=== PATIENT | female | born 1980 | race Caucasian/White ===

== ENCOUNTER 2016-12-18 15:20 | Emergency (ER) | payer MEDICAID ==
--- NOTE | 2016-12-18 18:15 | Emergency Department Record ---
History of Present Illness - General Chief Complaint: Cough Stated Complaint: COUGH Time Seen by Provider: 12/18/16 18:12 Source: Patient Mode of Arrival: Ambulatory Limitations: No limitations - History of Present Illness Initial Comments: 36 yo female presents to ED with a 9-day history of intermittent fevers and cough symptoms. Patient denies previous lung problems or asthma. Patient does report that her daughter has been ill with similar symptoms. MD Complaint: Cough, Fever Onset/Timin -: Days(s) Severity: Mild Severity scale (1-10): 4 Consistency: Constant Improves With: Nothing Worsens With: Nothing - Related Data Home Medications Medication Instructions Recorded Confirmed Last Taken Venlafaxine HCl [Effexor Xr] 150 mg PO BID 09/11/14 12/18/16 12/18/16 Pnv Cmb#21/Iron/Folic Acid 1 each PO DAILY 06/19/15 12/18/16 12/18/16 [ Complete Caplet] Pregabalin [Lyrica] 300 mg PO BID 10/09/16 12/18/16 12/18/16 Previous Rx's Medication Instructions Recorded Amoxicillin/Potassium Clav 1 tab PO BID #20 tab 12/18/16 [Augmentin 875-125 Tablet] Benzonatate [Tessalon] 2 cap PO Q8H PRN #30 cap 12/18/16 Prednisone [Prednisone 20Mg] 20 mg PO TID #15 tab 12/18/16 Allergies Allergy/AdvReac Type Severity Reaction Status Date / Time topiramate [From Topamax] Allergy HIVES Verified 12/18/16 17:31 Travel Screening - Travel/Exposure Within Last 30 Days Have you traveled within the last 30 days?: No Review of Systems Constitutional: Reports: Fever. Denies: Chills, Malaise, Night sweats Eyes: Denies: Eye discharge, Eye pain ENT: Reports: Congestion. Denies: Ear pain, Epistaxis Respiratory: Reports: Cough, Dyspnea, Wheezes Cardiovascular: Denies: Chest pain, Dyspnea on exertion, Palpitations Endocrine: Denies: Fatigue, Heat or cold intolerance Gastrointestinal: Denies: Abdominal pain, Nausea, Vomiting Genitourinary: Denies: Dysuria, Frequency, Hematuria Musculoskeletal: Denies: Arthralgia, Back pain, Gout, Joint swelling Skin: Denies: Bruising, Change in color, Pruritus, Rash Neurological: Denies: Abnormal gait, Confusion, Headache, Seizure Psychiatric: Denies: Anxiety Hematological/Lymphatic: Denies: Anemia, Blood Clots Past Medical History - SOCIAL HISTORY Smoking Status: Former smoker Alcohol Use: None Drug Use: None - RESPIRATORY Hx Respiratory Disorders: No - CARDIOVASCULAR Hx Cardio Disorders: No - NEURO Hx Neuro Disorders: Yes Hx Headaches: Yes - GI Hx GI Disorders: No - Hx Genitourinary Disorders: Yes Hx Kidney Stones: Yes - ENDOCRINE Hx Endocrine Disorders: No - MUSCULOSKELETAL Hx Musculoskeletal Disorders: No - PSYCH Hx Psych Problems: Yes Hx Anxiety: Yes Hx Depression: Yes - HEMATOLOGY/ONCOLOGY Hx Hematology/Oncology Disorders: No Family Medical History Any Significant Family History?: No Physical Exam - General General Appearance: Alert, Oriented x3, Cooperative, No acute distress Limitations: No limitations - Head Head exam: Atraumatic, Normocephalic, Normal inspection Head exam detail: negative: Abrasion, Contusion, Baird's sign, General tenderness, Hematoma, Laceration - Eye Eye exam: Normal appearance. negative: Conjunctival injection, Periorbital swelling, Periorbital tenderness, Scleral icterus - ENT Ear exam: negative: Auricular hematoma, Auricular trauma Nasal Exam: negative: Active bleeding, Discharge, Dried blood, Foreign body Mouth exam: negative: Drooling, Laceration, Muffled voice, Tongue elevation - Neck Neck exam: Normal inspection. negative: Meningismus, Tenderness - Respiratory Respiratory exam: Prolonged expiratory, Wheezes (mild wheezes present bilaterally). negative: Respiratory distress, Rhonchi, Stridor - Cardiovascular Cardiovascular Exam: Regular rate, Normal rhythm, Normal heart sounds - GI/Abdominal GI/Abdominal exam: Soft. negative: Rebound, Rigid, Tenderness - Rectal Rectal exam: Deferred - exam: Deferred - Extremities Extremities exam: Normal inspection. negative: Calf tenderness, Pedal edema, Tenderness - Back Back exam: Reports: Normal inspection. Denies: CVA tenderness (R), CVA tenderness (L) - Neurological Neurological exam: Alert, Normal gait, Oriented X3 - Psychiatric Psychiatric exam: Normal affect, Normal mood - Skin Skin exam: Normal color. negative: Abrasion Type of lesion: negative: abrasion Course Vital Signs 12/18/16 17:23 Temperature 97.7 F Pulse Rate [ 68 Pulse Ox Probe] Respiratory 18 Rate Blood Pressure 139/97 [Left Arm] Pulse Ox 97 - Reevaluation(s) Reevaluation #1: 12/18/16 18:31 Patient is well appearing on examination with very mild wheezing bilaterally. Patient also reports that she has an albuterol inhaler at home. Patient appears stable for discharge on Augmentin, Prednisone, and Tessalon for her cough symptoms with symptoms likely secondary to bronchitis. Patient agrees with the plan as discussed. Disposition Disposition: Discharge Clinical Impression: URI (upper respiratory infection) Qualifiers: URI type: unspecified viral URI Qualified Code(s): J06.9 - Acute upper respiratory infection, unspecified Disposition: Home, Self-Care Condition: (2) Stable Instructions: Acute Bronchitis (ED) Additional Instructions: Return to ED if your symptoms worsen or if you have any concern. Augmentin, Tessalon, and prednisone as directed. Follow-up with your family doctor in 3-5 days as directed. Prescriptions: Amoxicillin/Potassium Clav [Augmentin 875-125 Tablet] 1 tab PO BID #20 tab Prednisone [Prednisone 20Mg] 20 mg PO TID #15 tab Benzonatate [Tessalon] 2 cap PO Q8H PRN #30 cap PRN Reason: Cough Forms: Patient Portal Access Time of Disposition: 18:15
[2016-12-18] MEDS ORDERED: BENZONATATE 100 MG CAPSULE PO ONE (18:44)
[2016-12-18] MEDS ORDERED: AMOXICILLIN/POTASSIUM CLAV 875MG/125MG TABLET PO ONE (18:44)
[2016-12-18] MEDS ORDERED: PREDNISONE 20 MG TAB PO ONE (18:44)
== END 2016-12-18 18:37 | disposition home or self-care (01) ==
LOC: ER 15:20
DX: J06.9 Acute upper respiratory infection, unspecified (principal); R06.2 Wheezing
CPT/HCPCS: 99282; J7512

== ENCOUNTER 2017-08-13 17:21 | Emergency (ER) | payer MEDICAID ==
[2017-08-13] MEDS ORDERED: KETOROLAC 30 MG/ML VIAL IM ONE (18:29)
--- NOTE | 2017-08-13 18:34 | Emergency Department Record ---
History of Present Illness - General Chief complaint: Pain Stated complaint: PAIN LOWER BACK DOWN RT LEG Time Seen by Provider: 08/13/17 18:21 Source: Patient Mode of Arrival: Ambulatory Limitations: No limitations - History of Present Illness Initial comments: The patient is here due to a 2 day hx of lower back pain. She states she was pushing large rocks in the yard 2 days ago and then developed R sided back pain. The pain is sharp and stabbing and intermittently radiates down the R leg with certain positions. She denies any trauma, fall or injury. The pain is MUCH worse with any movement or twisting. She denies any leg weakness, numbness, or any bowel or bladder issues. The patient does have a hx of chronic low back pain and does already take multiple medicines for it. There is no reported abdominal pain, fever, chills, nausea, or vomiting. MD Complaint: Other Onset/Timin -: Days(s) Location: Right, Lower Leg, Other Severity scale (1-10): 9 Quality: Dull, Sharp Consistency: Constant Improves with: Nothing Worsens with: Weight bearing Associated Symptoms: Denies other symptoms - Related Data Previous Rx's Medication Instructions Recorded Cyclobenzaprine HCl [Flexeril] 10 mg PO TID PRN #20 tablet 08/13/17 Allergies Allergy/AdvReac Type Severity Reaction Status Date / Time topiramate [From Topamax] Allergy HIVES Verified 12/18/16 17:31 Travel Screening - Travel/Exposure Within Last 30 Days Have you traveled within the last 30 days?: No Review of Systems Constitutional: Denies: Chills, Fever Eyes: Denies: Eye discharge ENT: Denies: Congestion Respiratory: Denies: Cough, Dyspnea Past Medical History - SOCIAL HISTORY Smoking Status: Former smoker - RESPIRATORY Hx Respiratory Disorders: No - CARDIOVASCULAR Hx Cardio Disorders: No - NEURO Hx Neuro Disorders: Yes Hx Headaches: Yes - GI Hx GI Disorders: No - Hx Genitourinary Disorders: Yes Hx Kidney Stones: Yes - ENDOCRINE Hx Endocrine Disorders: No - MUSCULOSKELETAL Hx Musculoskeletal Disorders: No - PSYCH Hx Psych Problems: Yes Hx Anxiety: Yes Hx Depression: Yes - HEMATOLOGY/ONCOLOGY Hx Hematology/Oncology Disorders: No Family Medical History Any Significant Family History?: No Physical Exam - General General Appearance: Alert, Oriented x3, Cooperative, No acute distress - Head Head exam: Atraumatic, Normocephalic, Normal inspection - Eye Eye exam: Normal appearance, PERRL - Neck Neck exam: Normal inspection, Full ROM. negative: Tenderness - Respiratory Respiratory exam: Normal lung sounds bilaterally. negative: Respiratory distress - Cardiovascular Cardiovascular Exam: Regular rate, Normal rhythm, Normal heart sounds - GI/Abdominal GI/Abdominal exam: Soft, Normal bowel sounds. negative: Guarding, Rebound, Tenderness - Extremities Extremities exam: Normal inspection, Full ROM, Normal capillary refill. negative: Tenderness Image of Full Body: 1 - Location of the patient's pain and tenderness. - Back Back exam: Reports: Normal inspection, Paraspinal tenderness, Other (Neg SLR bilaterally.). Denies: Full ROM (decreased due to pain.), Rash noted, Vertebral tenderness - Neurological Neurological exam: Alert, Normal gait, Oriented X3, Reflexes normal (The patella and achilles reflexes are 2+ and equal bilaterally.). negative: Abnormal gait, Altered, Motor sensory deficit Course Vital Signs 08/13/17 18:15 Temperature 98.0 F Pulse Rate 104 H Respiratory 18 Rate Blood Pressure 110/72 Pulse Ox 98 - Reevaluation(s) Reevaluation #1: The patient is doing better at this time. The cath. UA was normal with 0-2 RBC' s and neg for WBC's and bacteria. I did explain to the patient that it appears she has a strained muscle in her back with some spasm. She is to rest at home and see her PCP if not better later this week. 08/13/17 19:33 Disposition Disposition: Discharge Clinical Impression: Muscle strain Disposition: Home, Self-Care Condition: (1) Good Instructions: Muscle Spasm (ED) Additional Instructions: Please take your home pain medicines and add the Flexeril when not working or driving. Please see your PCP if not better in 2-3 days. Return to the ER for any increased pain, fever, or any leg weakness, numbness, or any bowel or bladder incontinence or difficulty going the bathroom. Prescriptions: Cyclobenzaprine HCl [Flexeril] 10 mg PO TID PRN #20 tablet PRN Reason: Pain Forms: Patient Portal Access Time of Disposition: 19:36 Quality - Quality Measures Quality Measures: N/A - Blood Pressure Screening View Details: Yes Does Patient Have Any of the Following: No Blood Pressure Classification: Normal BP Reading Systolic Measurement: 110 Diastolic Measurement: 72 Screening for High Blood Pressure: < Normal BP, F/U Not Required > [G8783]
[2017-08-13 18:44] LABS: URINE APPEARANCE SL CLOUDY; URINE BILIRUBIN NEGATIVE (NEGATIVE); URINE BLOOD LARGE (NEGATIVE); URINE COLOR YELLOW; URINE GLUCOSE (UA) NEGATIVE (NEGATIVE); URINE KETONE TRACE (NEGATIVE); URINE LEUKOCYTE ESTERASE TRACE (NEGATIVE); URINE NITRITE NEGATIVE (NEGATIVE); URINE PROTEIN TRACE (NEGATIVE); URINE UROBILINOGEN 0.2 E.U./dL (0.20 - 1.00)
[2017-08-13 18:50] LABS: HCG,QUALITATIVE URINE NEGATIVE (NEGATIVE); URINE BACTERIA 1+; URINE EPITHELIAL CELLS 36 - 50 (FEW)
[2017-08-13 19:27] LABS: URINE APPEARANCE CLEAR; URINE BILIRUBIN NEGATIVE (NEGATIVE); URINE BLOOD SMALL (NEGATIVE); URINE COLOR YELLOW; URINE GLUCOSE (UA) NEGATIVE (NEGATIVE); URINE KETONE TRACE (NEGATIVE); URINE LEUKOCYTE ESTERASE NEGATIVE (NEGATIVE); URINE NITRITE NEGATIVE (NEGATIVE); URINE PROTEIN NEGATIVE (NEGATIVE); URINE UROBILINOGEN 0.2 E.U./dL (0.20 - 1.00)
[2017-08-13] MEDS ORDERED: HYDROCODONE/APAP 5/325MG TABLET PO ONE (19:36)
== END 2017-08-13 19:47 | disposition home or self-care (01) ==
LOC: ER 17:21
DX: S39.012A Strain of muscle, fascia and tendon of lower back, initial encounter (principal); X50.9XXA Other and unspecified overexertion or strenuous movements or postures, initial encounter; Y93.H9 Activity, other involving exterior property and land maintenance, building and construction; Y92.007 Garden or yard of unspecified non-institutional (private) residence as the place of occurrence of the external cause
CPT/HCPCS: 99283; 96372; 99284; 81001; 81003; 81025; J1885

== ENCOUNTER 2017-10-05 09:12 | Emergency (ER) | payer MEDICAID ==
--- NOTE | 2017-10-05 09:44 | Emergency Department Record ---
History of Present Illness - General Chief complaint: Extremity Problem Stated complaint: L FOOT PAIN Time Seen by Provider: 10/05/17 09:43 Source: Patient Mode of Arrival: Ambulatory Limitations: No limitations - History of Present Illness Initial comments: The patient is here due to L foot pain for 3 days. The pain is much worse today and is located near the heel over the plantar surface. She denies any trauma or injury or any hx of similar issues. MD Complaint: Extremity pain Onset/Timin -: Days(s) Location: Left, Foot History of Same: No Radiation: None Severity scale (1-10): 7 Quality: Dull, Other Consistency: Intermittent Improves with: Immobilization Worsens with: Walking, Weight bearing Associated Symptoms: Denies other symptoms - Related Data Previous Rx's Medication Instructions Recorded Cephalexin [Keflex] 500 mg PO QID #28 cap 10/05/17 Naproxen [Naprosyn] 250 mg PO BID #14 tablet 10/05/17 Allergies Allergy/AdvReac Type Severity Reaction Status Date / Time topiramate [From Topamax] Allergy HIVES Verified 10/05/17 09:31 Travel Screening - Travel/Exposure Within Last 30 Days Have you traveled within the last 30 days?: No - Travel/Exposure Within Last Year Have you traveled outside the [place] in the last year?: No - Additonal Travel Details Have you been exposed to anyone with a communicable illness?: No - Travel Symptoms Symptom Screening: None Review of Systems Constitutional: Denies: Chills, Fever Eyes: Denies: Eye discharge ENT: Denies: Congestion Respiratory: Denies: Cough, Dyspnea Past Medical History - SOCIAL HISTORY Smoking Status: Former smoker Alcohol Use: Occasional Drug Use: None - RESPIRATORY Hx Respiratory Disorders: No - CARDIOVASCULAR Hx Cardio Disorders: No - NEURO Hx Neuro Disorders: Yes Hx Headaches: Yes - GI Hx GI Disorders: No - Hx Genitourinary Disorders: Yes Hx Kidney Stones: Yes - ENDOCRINE Hx Endocrine Disorders: No - MUSCULOSKELETAL Hx Musculoskeletal Disorders: No - PSYCH Hx Psych Problems: Yes Hx Anxiety: Yes Hx Depression: Yes - HEMATOLOGY/ONCOLOGY Hx Hematology/Oncology Disorders: No Family Medical History Any Significant Family History?: No Physical Exam - General General Appearance: Alert, Oriented x3, Cooperative, No acute distress - Head Head exam: Atraumatic, Normocephalic, Normal inspection - Eye Eye exam: Normal appearance - Extremities Extremities exam: Full ROM, Normal capillary refill, Tenderness (There is tenderness to palpation over the plantar surface at the site of the pain. There is no swelling, brusing, or puncture wounds present. There possibly is very slight erythema present.). negative: Normal inspection (There may very very trace erythema over the pain area.), Calf tenderness, Joint swelling, Pedal edema Image of Feet: 1 - Area of pain and tenderness. Course Vital Signs 10/05/17 09:33 Temperature 97.8 F Pulse Rate 107 H Respiratory 20 Rate Blood Pressure 122/82 Pulse Ox 97 - Reevaluation(s) Reevaluation #1: I did explain to the patient the xray was normal and the need for F/U next week. We will treat the patient with Keflex and naprosyn and have her stay off the foot for 3 days. 10/05/17 10:52 Medical Decision Making - Data Complexity MDM Data: X-Ray Ordered and/or Reviewed - Radiology Data Radiology results: Report reviewed (L foot: Neg.) Disposition Disposition: Discharge Clinical Impression: Foot pain, left Disposition: Home, Self-Care Condition: (2) Stable Instructions: Arthralgia (ED) Additional Instructions: Please use the Post op shoe for 5 days and use your crutches for 3 days and be non weight bearing on the L foot. Please ice and elevate the foot for the next 3 days. Take the Keflex and Naprosyn as directed. Please see your PCP next week for recheck and return to the ER if worse. Prescriptions: Cephalexin [Keflex] 500 mg PO QID #28 cap Naproxen [Naprosyn] 250 mg PO BID #14 tablet Forms: Patient Portal Access Time of Disposition: 10:54 Quality - Quality Measures Quality Measures: N/A - Blood Pressure Screening View Details: Yes Does Patient Have Any of the Following: No Blood Pressure Classification: Pre-Hypertensive BP Reading Systolic Measurement: 122 Diastolic Measurement: 82 Screening for High Blood Pressure: < Pre-Hypertensive BP, F/U Documented > [ G8950] Pre-Hypertensive Follow-up Interventions: Referral to alternative/primary care provider.
[2017-10-05] MEDS ORDERED: IBUPROFEN 600 MG TABLET PO ONE (10:11)
[2017-10-05] MEDS ORDERED: CEPHALEXIN 500 MG CAPSULE PO STA (10:23)
--- NOTE | 2017-10-06 07:35 | RADIOLOGY REPORT ---
EXAM: LEFT FOOT COMPLETE HISTORY: LEFT FOOT PAIN FOR TWO DAYS. THE PAIN IS MEDIAL AND MOST PRONOUNCED WITH WEIGHT BEARING. NO KNOWN INJURY. TECHNIQUE: Three views of the left foot were obtained. Comparison: None. FINDINGS: There is normal bone mineralization. No acute fracture, dislocation , or destructive bone lesion is seen. The articular relations are maintained. No periarticular erosion. No focal soft tissue abnormality. IMPRESSION: NO EVIDENCE OF ACUTE BONE NOR JOINT ABNORMALITY. JOB NUMBER: [id number] MTDD
== END 2017-10-05 11:12 | disposition home or self-care (01) ==
LOC: ER 09:12
DX: M79.672 Pain in left foot (principal)
CPT/HCPCS: 99283

== ENCOUNTER 2018-01-06 18:04 | Emergency (ER) | payer MEDICAID ==
[2018-01-06] MEDS ORDERED: KETOROLAC 30 MG/ML VIAL IM ONE (18:32)
--- NOTE | 2018-01-06 18:36 | Emergency Department Record ---
History of Present Illness - General Chief complaint: Lower Extremity Pain Stated complaint: PAIN ON LEFT FOOT Time Seen by Provider: 01/06/18 18:21 Source: Patient Mode of Arrival: Ambulatory Limitations: No limitations - History of Present Illness Initial comments: The patient is here due to chronic L foot pain. She has had the pain for at least 3 months. The patient was here in the ER in Sep of last year and had a neg L foot xray. The pain has been present off and on since. She has seen her PCP 2-3 times for the same thing and now has finally been referred to podiatry. Now the pain seems to be worsening and she would like something else for the pain. MD Complaint: Extremity pain Onset/Timin -: Month(s) Location: Left, Foot History of Same: Yes Severity scale (1-10): 7 Quality: Aching, Burning Improves with: Nothing Worsens with: Nothing Associated Symptoms: Denies other symptoms - Related Data Previous Rx's Medication Instructions Recorded Naproxen [Naprosyn] 500 mg PO BID #14 tablet. 01/06/18 Allergies Allergy/AdvReac Type Severity Reaction Status Date / Time topiramate [From Topamax] Allergy HIVES Verified 01/06/18 18:14 Travel Screening - Travel/Exposure Within Last 30 Days Have you traveled within the last 30 days?: No - Travel/Exposure Within Last Year Have you traveled outside the [place] in the last year?: No - Additonal Travel Details Have you been exposed to anyone with a communicable illness?: No - Travel Symptoms Symptom Screening: None Review of Systems Constitutional: Denies: Chills, Fever Past Medical History - SOCIAL HISTORY Smoking Status: Former smoker Alcohol Use: None Drug Use: None - RESPIRATORY Hx Respiratory Disorders: No - CARDIOVASCULAR Hx Cardio Disorders: No - NEURO Hx Neuro Disorders: Yes Hx Headaches: Yes - GI Hx GI Disorders: No - Hx Genitourinary Disorders: Yes Hx Kidney Stones: Yes - ENDOCRINE Hx Endocrine Disorders: No - MUSCULOSKELETAL Hx Musculoskeletal Disorders: No - PSYCH Hx Psych Problems: Yes Hx Anxiety: Yes Hx Depression: Yes - HEMATOLOGY/ONCOLOGY Hx Hematology/Oncology Disorders: No Family Medical History Any Significant Family History?: Yes Physical Exam - General General Appearance: Alert, Cooperative, No acute distress - Head Head exam: Atraumatic, Normocephalic - Eye Eye exam: Normal appearance, PERRL - Extremities Extremities exam: Normal inspection (There is no swelling, bruising or erythema. ), Full ROM, Normal capillary refill, Tenderness (There is very reproducible tenderness to palpation over the plantar surface just anterior to the calcaneus. ), Other (The L foot is NVI.). negative: Joint swelling Image of Feet: 1 - Area of pain and tenderness. There is no swelling, erythema, or edema appreciated. Course Vital Signs 01/06/18 18:08 Temperature 98.7 F Pulse Rate 92 H Respiratory 16 Rate Blood Pressure 135/86 Pulse Ox 100 Medical Decision Making - Data Complexity MDM Data: X-Ray Ordered and/or Reviewed - Radiology Data Radiology results: Report reviewed (L foot: Neg.) Disposition Disposition: Discharge Clinical Impression: Foot pain, left Disposition: Home, Self-Care Condition: (2) Stable Instructions: Plantar Fasciitis (ED) Additional Instructions: Please ice the L foot painful area when possible. Wear your walking boot for the next week. Take the Naprosyn as directed. Please see the Clinical Research Scientist ANDI. Prescriptions: Naproxen [Naprosyn] 500 mg PO BID #14 tablet.dr Forms: Patient Portal Access Time of Disposition: 18:41 Quality - Quality Measures Quality Measures: N/A - Blood Pressure Screening View Details: Yes Does Patient Have Any of the Following: No Blood Pressure Classification: Pre-Hypertensive BP Reading Systolic Measurement: 115 Diastolic Measurement: 88 Screening for High Blood Pressure: < Pre-Hypertensive BP, F/U Documented > [ G8950] Pre-Hypertensive Follow-up Interventions: Referral to alternative/primary care provider.
[2018-01-06] MEDS ORDERED: HYDROCODONE/APAP 5/325MG TABLET PO ONE (18:37)
--- NOTE | 2018-01-07 22:47 | RADIOLOGY REPORT ---
EXAM: FOOT, LEFT 3 VIEWS HISTORY: INJURY. TECHNIQUE: Three views of the left foot were performed. FINDINGS: No evidence of fracture or dislocation. No radiopaque loose body. No gas collection. IMPRESSION: NEGATIVE LEFT FOOT EXAMINATION. JOB NUMBER: [id number] MTDD
== END 2018-01-06 19:56 | disposition home or self-care (01) ==
LOC: ER 18:04
DX: M79.672 Pain in left foot (principal); Z87.891 Personal history of nicotine dependence
CPT/HCPCS: 99283 ×2; 96372; 73630; J1885

== ENCOUNTER 2018-01-23 14:52 | Emergency (ER) | payer MEDICAID ==
[2018-01-23] MEDS ORDERED: ACETAMINOPHEN 500 MG TABLET PO ONE (15:13)
[2018-01-23] MEDS ORDERED: 0.9 % SODIUM CHLORIDE 1,000 ML BAG IV ONE ×2 (15:13→17:05)
[2018-01-23 15:20] LABS: INFLUENZA A POSITIVE (NEGATIVE); INFLUENZA B NEGATIVE (NEGATIVE)
[2018-01-23] MEDS ORDERED: OSTELTAMIVIR 75 MG CAP PO ONE (16:03)
--- NOTE | 2018-01-23 16:10 | Emergency Department Record ---
History of Present Illness - General Chief Complaint: Cough Stated Complaint: COUGH,FEVER Time Seen by Provider: 01/23/18 15:06 Source: Patient Mode of Arrival: Ambulatory Limitations: No limitations - History of Present Illness Initial Comments: pt has been sick for 36 hrs with fever, body aches, cough, congestion Complaint: Cough, Fever, Nasal congestion, Rhinorrhea Onset/Timin -: Days(s) Severity scale (1-10): 7 Consistency: Constant Improves With: NSAID Context: Sick contacts Associated Symptoms: Chills, Cough, Fever, Myalgias, Nasal congestion, Sore throat Treatments Prior to Arrival: Ibuprofen - Related Data Home Medications Medication Instructions Recorded Confirmed Last Taken Brexpiprazole [Rexulti] 1 mg PO DAILY 01/23/18 01/23/18 Unknown Previous Rx's Medication Instructions Recorded Oseltamivir Phosphate [Tamiflu] 75 mg PO BID #9 capsule 01/23/18 Allergies Allergy/AdvReac Type Severity Reaction Status Date / Time topiramate [From Topamax] Allergy HIVES Verified 01/06/18 18:14 Travel Screening - Travel/Exposure Within Last 30 Days Have you traveled within the last 30 days?: No Review of Systems Reviewed: No additional complaints except as noted below Constitutional: Reports: As per HPI, Fever. Denies: Chills, Malaise, Night sweats, Weakness, Weight change Eyes: Reports: As per HPI. Denies: Eye discharge, Eye pain, Photophobia, Vision change ENT: Reports: As per HPI, Throat pain. Denies: Congestion, Dental pain, Ear pain, Epistaxis, Hearing loss Respiratory: Reports: As per HPI, Cough. Denies: Dyspnea, Hemoptysis, Stridor, Wheezes Cardiovascular: Reports: As per HPI. Denies: Arrhythmia, Chest pain, Dyspnea on exertion, Edema, Murmurs, Orthopnea, Palpitations, Paroxysmal nocturnal dyspnea, Rheumatic Fever, Syncope Endocrine: Reports: As per HPI, Fatigue. Denies: Heat or cold intolerance, Polydipsia, Polyuria Gastrointestinal: Reports: As per HPI. Denies: Abdominal pain, Constipation, Diarrhea, Hematemesis, Hematochezia, Melena, Nausea, Vomiting Genitourinary: Reports: As per HPI. Denies: Abnormal menses, Discharge, Dyspareunia, Dysuria, Frequency, Hematuria, Incontinence, Retention, Urgency Musculoskeletal: Reports: As per HPI. Denies: Arthralgia, Back pain, Gout, Joint swelling, Myalgia, Neck pain Skin: Reports: As per HPI. Denies: Bruising, Change in color, Change in hair/ nails, Lesions, Pruritus, Rash Neurological: Reports: As per HPI. Denies: Abnormal gait, Confusion, Headache, Numbness, Paresthesias, Seizure, Tingling, Tremors, Vertigo, Weakness Psychiatric: Reports: As per HPI. Denies: Anxiety, Auditory hallucinations, Depression, Homicidal thoughts, Suicidal thoughts, Visual hallucinations Hematological/Lymphatic: Reports: As per HPI. Denies: Anemia, Blood Clots, Easy bleeding, Easy bruising, Swollen glands Past Medical History - SOCIAL HISTORY Smoking Status: Former smoker Alcohol Use: None Drug Use: None - RESPIRATORY Hx Respiratory Disorders: No - CARDIOVASCULAR Hx Cardio Disorders: No - NEURO Hx Neuro Disorders: Yes Hx Headaches: Yes - GI Hx GI Disorders: No - Hx Genitourinary Disorders: Yes Hx Kidney Stones: Yes - ENDOCRINE Hx Endocrine Disorders: No - MUSCULOSKELETAL Hx Musculoskeletal Disorders: No - PSYCH Hx Psych Problems: Yes Hx Anxiety: Yes Hx Depression: Yes - HEMATOLOGY/ONCOLOGY Hx Hematology/Oncology Disorders: No Family Medical History Any Significant Family History?: No Physical Exam - General General Appearance: Alert, Oriented x3, Cooperative, Mild distress - Head Head exam: Normal inspection - Eye Eye exam: Normal appearance, PERRL, Conjunctival injection, EOMI Pupils: Normal accommodation - ENT ENT exam: Normal exam, Mucous membranes moist, Normal external ear exam, Normal orophraynx, TM's normal bilaterally Ear exam: Normal external inspection. negative: External canal tenderness Nasal Exam: Normal inspection. negative: Discharge, Sinus tenderness Mouth exam: Normal external inspection, Tongue normal Teeth exam: Normal inspection. negative: Dental caries Throat exam: Tonsillar erythema. negative: Tonsillar exudate - Neck Neck exam: Normal inspection, Full ROM. negative: Tenderness - Respiratory Respiratory exam: Normal lung sounds bilaterally. negative: Respiratory distress - Cardiovascular Cardiovascular Exam: Normal rhythm, Normal heart sounds, Tachycardia - GI/Abdominal GI/Abdominal exam: Soft, Normal bowel sounds. negative: Tenderness - Rectal Rectal exam: Deferred - exam: Deferred - Extremities Extremities exam: Normal inspection, Full ROM, Normal capillary refill. negative: Tenderness - Back Back exam: Reports: Normal inspection, Full ROM. Denies: Muscle spasm, Rash noted, Tenderness - Neurological Neurological exam: Alert, CN II-XII intact, Normal gait, Oriented X3 - Psychiatric Psychiatric exam: Normal affect, Normal mood - Skin Skin exam: Dry, Intact, Normal color, Warm Course Vital Signs 01/23/18 14:55 Temperature 100.4 F H Pulse Rate 140 H Respiratory 24 Rate Blood Pressure 88/70 Pulse Ox 100 - Reevaluation(s) Reevaluation #1: 01/23/18 18:36 pt is feeling somewhat better Medical Decision Making - Lab Data Result diagrams: 01/23/18 16:00 01/23/18 16:00 Lab Results 01/23/18 Range/Units 15:05 Influenza Type A Ag Positive H (NEGATIVE) Influenza Type B Ag Negative (NEGATIVE) Disposition Disposition: Discharge Clinical Impression: Influenza A, Dehydration Disposition: Home, Self-Care Condition: (1) Good Instructions: Influenza (ED) Additional Instructions: follow up with family doctor. return sooner if worse. push fluids. tylenon and motrin as needed Prescriptions: Oseltamivir Phosphate [Tamiflu] 75 mg PO BID #9 capsule Forms: Patient Portal Access Quality - Quality Measures Quality Measures: N/A - Blood Pressure Screening Does Patient Have Any of the Following: No Blood Pressure Classification: Normal BP Reading Systolic Measurement: 88 Diastolic Measurement: 70 Screening for High Blood Pressure: < Normal BP, F/U Not Required > [G8783]
[2018-01-23 16:12] LABS: HEMATOCRIT 38.3 % (35.0-47.0); HEMOGLOBIN 12.1 gm/dl (11.6-16.0); MEAN CORPUSCULAR HEMOGLOBIN 25.9 pg (27-33); MEAN CORPUSCULAR HGB CONC 31.6 g/dl (32-36); PLATELET COUNT 236 K/uL (130-400); RED BLOOD COUNT 4.67 M/uL (3.80-5.40); RED CELL DISTRIBUTION WIDTH 15.5 % (11.5-14.5); WHITE BLOOD COUNT W/O DIFF 4.6 K/uL (4.2-12.2)
[2018-01-23 16:25] LABS: BLOOD UREA NITROGEN 6 mg/dL (6-20); CREATININE 0.6 mg/dL (0.5-0.9); EST GLOMERULAR FILTRATION RATE > 60 mL/min
[2018-01-23 16:26] LABS: PLATELET ESTIMATE NORMAL (NORMAL)
[2018-01-23 16:28] LABS: GLUCOSE,RANDOM 113 mg/dL (74-109)
[2018-01-23 18:20] LABS: URINE APPEARANCE CLEAR; URINE BILIRUBIN NEGATIVE (NEGATIVE); URINE BLOOD NEGATIVE (NEGATIVE); URINE GLUCOSE (UA) NEGATIVE (NEGATIVE); URINE KETONE NEGATIVE (NEGATIVE); URINE LEUKOCYTE ESTERASE NEGATIVE (NEGATIVE); URINE NITRITE NEGATIVE (NEGATIVE); URINE PROTEIN NEGATIVE (NEGATIVE); URINE UROBILINOGEN 0.2 E.U./dL (0.20 - 1.00)
[2018-01-23 18:21] LABS: URINE COLOR STRAW
--- NOTE | 2018-01-25 09:04 | RADIOLOGY REPORT ---
EXAM: CHEST, TWO VIEWS HISTORY: COUGH AND FEVER FOR A FEW DAYS. TESTED POSITIVE FOR INFLUENZA A. TECHNIQUE: Upright PA and lateral views of the chest were obtained. Comparison: Two view chest radiographic examination dated 07/05/17. FINDINGS: The heart is not enlarged and the pulmonary vasculature is nondilated. Minor patchy opacities are suggested in the left lung base consistent with atelectasis or less likely infiltrate. The lungs and pleural spaces are otherwise clear. The osseous structures are intact. There is minor elevation of the right hemidiaphragm. IMPRESSION: MINOR PATCHY OPACITIES IN THE LEFT LUNG BASE CONSISTENT WITH ATELECTASIS OR LESS LIKELY INFILTRATE. MILD ELEVATION OF THE RIGHT HEMIDIAPHRAGM. JOB NUMBER: [id number] [facility]
== END 2018-01-23 18:51 | disposition home or self-care (01) ==
LOC: ER 14:52
DX: J10.1 Influenza due to other identified influenza virus with other respiratory manifestations (principal); E86.0 Dehydration; Z87.891 Personal history of nicotine dependence
CPT/HCPCS: 71046; 80048; 81003; 85027; 87400; 96360; 99284; J7030

== ENCOUNTER 2018-12-25 19:21 | Emergency (ER) | payer MEDICAID ==
[2018-12-25] MEDS ORDERED: KETOROLAC 30 MG/ML VIAL IVP ONE (19:46)
[2018-12-25] MEDS ORDERED: SODIUM CHLORIDE 0.9% 500 ML IV ONE (19:46)
[2018-12-25] MEDS ORDERED: ONDANSETRON HCL IV 4 MG/2 ML VIAL IV ONE (19:46)
--- NOTE | 2018-12-25 19:51 | Emergency Department Record ---
History of Present Illness - General Chief complaint: Flank Pain Stated complaint: LT FLANK PAIN Time Seen by Provider: 12/25/18 19:33 Source: Patient Mode of Arrival: Ambulatory Limitations: No limitations - History of Present Illness Initial comments: The patient is here due to a one day hx of L flank pain with nausea and mild dysuria. She does have a hx of kidney stones and thinks she may have another. The patient denies any fever, vaginal discharge, bleeding or vomiting. MD Complaint: Dysuria Onset/Timin -: Days(s) Radiation: LLQ Severity scale (1-10): 7 Quality: Dull, Sharp Consistency: Constant, Getting worse Improves with: None LMP Date: 12/04/18 Gestational Age (wks) based on LMP: 3 Associated Symptoms: Nausea/vomiting - Related Data Home Medications Medication Instructions Recorded Confirmed Last Taken Cariprazine HCl [Vraylar] 4.5 mg PO DAILY 12/25/18 12/25/18 12/25/18 Previous Rx's Medication Instructions Recorded Hydrocodone/Acetaminophen [[place] 1 - 2 each PO QID #12 tablet 12/25/18 5-325 Tablet] Ondansetron [Zofran Odt] 4 mg SL .Q4-6H PRN #12 tab.rapdis 12/25/18 Tamsulosin HCl [Flomax] 0.4 mg PO DAILY #7 cap.er.24h 12/25/18 Allergies Allergy/AdvReac Type Severity Reaction Status Date / Time topiramate [From Topamax] Allergy HIVES Verified 01/06/18 18:14 Travel Screening - Travel/Exposure Within Last 30 Days Have you traveled within the last 30 days?: No - Travel Symptoms Symptom Screening: None Review of Systems Constitutional: Denies: Chills, Fever Past Medical History - SOCIAL HISTORY Smoking Status: Former smoker - RESPIRATORY Hx Respiratory Disorders: No - CARDIOVASCULAR Hx Cardio Disorders: No - NEURO Hx Neuro Disorders: Yes Hx Headaches: Yes - GI Hx GI Disorders: No - Hx Genitourinary Disorders: Yes Hx Kidney Stones: Yes - ENDOCRINE Hx Endocrine Disorders: No - MUSCULOSKELETAL Hx Musculoskeletal Disorders: No - PSYCH Hx Psych Problems: Yes Hx Anxiety: Yes Hx Depression: Yes - HEMATOLOGY/ONCOLOGY Hx Hematology/Oncology Disorders: No Family Medical History Any Significant Family History?: Yes Hx Heart Disease: Father *Heart Comment: Valve repair Hx HTN: Father Physical Exam - General General Appearance: Alert, Oriented x3, Cooperative, No acute distress - Head Head exam: Atraumatic, Normocephalic - Eye Eye exam: Normal appearance, PERRL - Neck Neck exam: Normal inspection, Full ROM. negative: Tenderness - Respiratory Respiratory exam: Normal lung sounds bilaterally. negative: Respiratory distress - Cardiovascular Cardiovascular Exam: Regular rate, Normal rhythm, Normal heart sounds - GI/Abdominal GI/Abdominal exam: Soft, Normal bowel sounds. negative: Guarding, Pulsatile mass, Rebound, Rigid, Tenderness - Extremities Extremities exam: Normal inspection, Full ROM, Normal capillary refill. negative: Tenderness - Back Back exam: Reports: CVA tenderness (L) (mild.) - Neurological Neurological exam: Alert. negative: Motor sensory deficit - Psychiatric Psychiatric exam: negative: Anxious Course Vital Signs 12/25/18 19:28 Temperature 97.6 F Pulse Rate [ 89 Pulse Ox Probe] Respiratory 20 Rate Blood Pressure 113/82 [Left Arm] Pulse Ox 99 - Reevaluation(s) Reevaluation #1: The patient is doing very well at this time and is feeling much better. Her pain is controlled and her nausea is gone. I did explain the ureter stone and the need to F/U with her Urologist Dr. Rebolledo. I also did explain the L lung base nodule and the need to see her PCP for an outpatient chest CT with contrast. 12/25/18 21:16 Medical Decision Making - Data Complexity MDM Data: Labs Ordered and/or Reviewed, X-Ray Ordered and/or Reviewed - Lab Data Result diagrams: 12/25/18 19:52 12/25/18 19:52 - Radiology Data Radiology results: Report reviewed (CT: 5.9 mm proximal L ureter stone with hydro. Incidental finding of L lung base nodule. CT recommended as outpatient.) Disposition Disposition: Discharge Clinical Impression: Ureteral stone with hydronephrosis Disposition: Home, Self-Care Condition: (2) Stable Instructions: Ureteral Stones (ED) Additional Instructions: PLease take the medicines as directed and please see your Urologist later this week. Also schedule an appointment with her PCP to go over your CT report and to get your chest CT scheduled. Return to the ER for any worsening pain, fever, or vomiting. Prescriptions: Hydrocodone/Acetaminophen [[place] 5-325 Tablet] 1 - 2 each PO QID #12 tablet Ondansetron [Zofran Odt] 4 mg SL .Q4-6H PRN #12 tab.rapdis PRN Reason: Nausea Tamsulosin HCl [Flomax] 0.4 mg PO DAILY #7 cap.er.24h Forms: Patient Portal Access Time of Disposition: 21:21 Quality - Quality Measures Quality Measures: N/A - Blood Pressure Screening View Details: Yes Does Patient Have Any of the Following: No Blood Pressure Classification: Normal BP Reading Systolic Measurement: 105 Diastolic Measurement: 73 Screening for High Blood Pressure: < Normal BP, F/U Not Required > [G8783]
[2018-12-25 20:03] LABS: BASO % 0.1 % (0-6); EOS % 1.7 % (0-6); GRAN % 67.2 % (47-80); HEMATOCRIT 37.6 % (35.0-47.0); HEMOGLOBIN 11.9 gm/dl (11.6-16.0); LYMPH % 21.2 % (16-45); MEAN CELL VOLUME 84.3 fl (81-97); MEAN CORPUSCULAR HEMOGLOBIN 26.7 pg (27-33); MEAN CORPUSCULAR HGB CONC 31.6 g/dl (32-36); MEAN PLATELET VOLUME 9.7 fl (7.4-10.4); MONO % 9.8 % (0-9); PLATELET COUNT 261 K/uL (130-400); RED BLOOD COUNT 4.46 M/uL (3.80-5.40); RED CELL DISTRIBUTION WIDTH 14.9 % (11.5-14.5); WHITE BLOOD COUNT W/O DIFF 10.9 K/uL (4.2-12.2)
[2018-12-25 20:04] LABS: URINE APPEARANCE CLEAR; URINE BILIRUBIN NEGATIVE (NEGATIVE); URINE BLOOD MODERATE (NEGATIVE); URINE COLOR YELLOW; URINE GLUCOSE (UA) NEGATIVE (NEGATIVE); URINE KETONE NEGATIVE (NEGATIVE); URINE LEUKOCYTE ESTERASE NEGATIVE (NEGATIVE); URINE NITRITE NEGATIVE (NEGATIVE); URINE PROTEIN NEGATIVE (NEGATIVE); URINE UROBILINOGEN 0.2 E.U./dL (0.20 - 1.00)
[2018-12-25 20:09] LABS: HCG,QUALITATIVE URINE NEGATIVE (NEGATIVE); URINE BACTERIA FEW; URINE RBC 16 - 25 (NONE SEEN); URINE WBC 0 - 2 (0-2/hpf)
[2018-12-25 20:12] LABS: BLOOD UREA NITROGEN 14 mg/dL (6-20); CREATININE 0.9 mg/dL (0.5-0.9); EST GLOMERULAR FILTRATION RATE > 60 mL/min
[2018-12-25 20:15] LABS: GLUCOSE,RANDOM 110 mg/dL (74-109)
[2018-12-25] MEDS ORDERED: HYDROMORPHONE HCL 2 MG/ML VIAL IVP ONE (20:44)
[2018-12-25] MEDS ORDERED: HYDROCODONE/APAP 5/325MG TABLET PO ONE (21:21)
--- NOTE | 2018-12-28 05:15 | CT SCAN REPORT ---
DATE: 12/25/2018 at 8:22 p.m. EXAM: EMERGENCY CT OF THE ABDOMEN AND PELVIS WITHOUT CONTRAST. HISTORY: Left flank pain started yesterday; worse today. TECHNIQUE: Axial CT scan of the abdomen and pelvis performed without oral or intravenous contrast. COMPARISON: CT of the abdomen and pelvis dated 09/11/2014 at 4:59 p.m. FINDINGS: On the uppermost image there is a pulmonary nodule seen in the posterior aspect of the lingula. This is incompletely included on this study as it is seen on the uppermost image obtained and presumably extends further cephalad. This measures about 9.3 mm in size. This was not identified on the prior CT; although the prior CT did not begin quite as high in the left lung base and may have simply not been included on the prior examination. A follow- up outpatient chest CT with contrast suggested for further evaluation. No calcified gallstones are seen within the gallbladder. There are multiple small calcifications in both kidneys consistent with multiple currently nonobstructing intrarenal calculi. However, there is also some hydronephrosis and hydroureter on the left with the dilated upper left ureter leading to an approximately 5.9 mm calculus consistent with an upper left ureteral calculus causing a component of obstruction. Distal to this the left ureter is not dilated with no additional more distal left ureteral calculus seen. There is no hydronephrosis or hydroureter on the right with no right ureteral calculus evident and no bladder calculus evident. Evaluation of the bowel and viscera is very limited without oral or intravenous contrast. Given this limitation, no definite hepatic, splenic, adrenal, pancreatic, or renal mass identified. There is a small amount of free fluid in the region of the cul de sac which may simply be physiologic in nature. Tiny periumbilical anterior abdominal wall hernia containing adipose tissue but no bowel. No appendicitis identified. Small calcified granuloma in the right lower lobe, also present previously. No free intraperitoneal air identified. IMPRESSION: 1. UPPER LEFT URETERAL CALCULUS APPROXIMATELY 5.9 MM IN SIZE CAUSING A COMPONENT OF OBSTRUCTION. 2. THERE ARE ADDITIONAL BILATERAL CURRENTLY NONOBSTRUCTING INTRARENAL CALCULI WELL. 3. VERY SMALL AMOUNT OF FREE FLUID MAY JUST BE PHYSIOLOGIC IN NATURE. NO FREE AIR EVIDENT. 4. INDETERMINATE 9.3 MM NODULE PARTIALLY SEEN IN THE LINGULA ON THE UPPERMOST IMAGE. FOLLOW-UP OUTPATIENT CHEST CT WITH INTRAVENOUS CONTRAST SUGGESTED FOR FURTHER EVALUATION. JOB NUMBER: [id number] [facility]
== END 2018-12-25 21:33 | disposition home or self-care (01) ==
LOC: ER 19:21
DX: N13.2 Hydronephrosis with renal and ureteral calculous obstruction (principal); Z87.891 Personal history of nicotine dependence
CPT/HCPCS: 99284 ×2; 96374; 96375; 85025; 80048; 81001; 81025; 74176; J1885; J2405; J1170